=== PATIENT | female | born 1960 | race Caucasian/White ===

== ENCOUNTER 2016-11-08 12:24 | Emergency (ER) | payer OTHER ==
--- NOTE | 2016-11-08 15:20 | ED ORDER SUMMARY ---
..... Patient: ANALY BECKER OrderSheet [facility] VisitID: [id number] [address] [place] [address] 56y, F Registration Date/Time: 11/08/2016 ORDER SHEET Weight: 145.1 kg (stated) Allergies: Penicillins GENERAL ORDERS: MEDICATION ORDERS: Meclizine PO 25 mg (once 15 min after zofran) (13:29 11/08/2016 Sheyla Raphael) (Ack 13:33 MWinterer R.N.) (14:11 MWinterer R.N.) IV FLUIDS: Zofran IV 4 mg (NOW) (13:15 11/08/2016 MWinterer R.N. verbal order read back to Sheyla Raphael) (13:15 MWinterer R.N.) Zofran IV 4 mg (NOW) (13:29 11/08/2016 Sheyla Raphael) (13:33 MWinterer R.N.) Reglan IV 10 mg (NOW) (13:59 11/08/2016 Sheyla Raphael) (Ack 14:00 MWinterer R.N.) (14:10 MWinterer R.N.) ORDER SHEET NOTES: [Electronically signed by Donna Kurtz R.N. (16:02 11/08/2016)] [Electronically signed by Freddy Ceja Dr. (05:45 11/10/2016)] [Electronically locked/signed by Donna Kurtz R.N. (16:02 11/08/2016)]
--- NOTE | 2016-11-08 15:20 | ED CLINICAL REPORT ---
Clinical Report - Physicians/Mid Levels [facility] [address] [place] [address] 11/08/2016 12:27 Patient: ANALY BECKER Time Seen: 1241. Arrived- By private vehicle. Historian- patient. HISTORY OF PRESENT ILLNESS Chief Complaint: VERTIGO. This started today and is still present. It was abrupt in onset and has been constant but is not gone now. Described as a sense of rotation. Severity described as moderate at its maximum. Modifying factors- worsened by turning head. (better with meclizine). The patient has had nausea and vomiting. She has had moderate right-sided tinnitus. The tinnitus on the right has been constant. Similar symptoms previously: Once. Recent medical care: Not recently seen/assessed. REVIEW OF SYSTEMS No chest pain, fever or difficulty breathing. All systems otherwise negative, except as recorded above. PAST HISTORY See nurses notes. Medications: None. Allergies: Penicillins. SOCIAL HISTORY Never smoker. No alcohol use or drug use. No recent travel. Is a local resident. ADDITIONAL NOTES The nursing notes have been reviewed. PHYSICAL EXAM Vital Signs: 11/08/2016 12:57 BP: 146/99. 11/08/2016 12:49 HR: 72. RR: 22. O2 saturation: 96%. Temp: 97.8 F. Pain level now: 0/10. Oxygen saturation normal. Appearance: Alert. Patient in mild distress. Eyes: Pupils equal, round and reactive to light. No nystagmus. Extraocular movements normal. ENT: Normal ENT inspection. TM's normal. Moist mucous membranes. Pharynx normal. Neck: Normal inspection. Neck supple. No meningeal signs. CVS: Normal heart rate and rhythm. Heart sounds normal. Pulses normal. Respiratory: No respiratory distress. Breath sounds normal. Abdomen: Soft and nontender. No organomegaly. Skin: Skin warm and dry. Normal skin color. No rash. Normal skin turgor. Extremities: Extremities exhibit normal ROM. No lower extremity edema. Neuro: Alert. Oriented X 3. Mood/affect normal. Speech normal. No cerebellar findings. No motor deficit. No sensory deficit. (negative HI NTS examination. positive [place] on the right greater than the left.). LABS, X-RAYS, AND EKG EKG: No acute process. No acute ischemia. Normal EKG. Normal sinus rhythm. Rate: 71. Normal P waves. Normal RENA. Normal QRS complex. Normal axis. Normal ST and T waves, QT and QTc. The study has been interpreted contemporaneously. The study has been independently viewed by me. The EKG appears to be a good tracing. PROGRESS AND PROCEDURES Course of Care: the patient is a 56-year-old female presenting for evaluation of nausea as well as dizziness. Patient is describing vertiginous type of symptoms. Patient had similar episode approximately 1 year ago. Patient states that she is better with meclizine. Patient is currently having nausea and vomiting in the emergency Department will also provide patient with nausea medication Patient is agreeable to the treatment and plan. All questions have been answered. The patient was reevaluated once the meclizine has been given. Patient with improved nausea and symptoms of vertigo. Because of the patient's symptoms, do not feel patient needs to be admitted to the hospital or require further emergency department workup/evaluation. With a negative HI NTS examination, patient is a significantly low risk for having isolated CVA of her vestibular system. Had a discussion with the patient in regards to her workup here in the emergency department including diagnosis, home care, follow-up, and return precautions. All questions have been answered. The patient expressed understanding of these instructions and was agreeable to them. Disposition: Discharged. Condition: good. CLINICAL IMPRESSION Acute vertigo of unknown cause. INSTRUCTIONS Warnings: GENERAL WARNINGS: Return or contact your physician immediately if your condition worsens or changes unexpectedly, if not improving as expected, or if other problems arise. SPECIFICALLY, return if you develop chest pain, fluttering sensation in your chest, lightheadedness, fainting, numbness, weakness or extreme fatigue. Prescription Medications: Zofran (orally disintegrating tablets) 4 mg: take 1 orally every 8 hours as needed for nausea and vomiting. Dispense ten (10). No refill. Substitution is permissible. Meclizine 25 mg: take 1 tablet orally every 8 hours as needed for dizziness or nausea. Dispense thirty (30). No refill. Follow-up: Return to the emergency department as needed. Follow up with your doctor in three days. Reason for referral: recheck today's concerns. Summary of care provided to patient via paper. Screening today revealed the patient's blood pressure to be in the normal range. The patient should follow up with a primary care provider for blood pressure management. Understanding of the discharge instructions verbalized by patient. (Electronically signed by Freddy Ceja Dr. 11/10/2016 5:45)
--- NOTE | 2016-11-08 15:20 | ED NURSING NOTES ---
Clinical Report - Nurses [facility] [address] [place] [address] 11/08/2016 12:27 Patient: ANALY BECKER TRIAGE Acuity: LEVEL 3. Chief Complaint: DIZZINESS and VERTIGO. Alert. No acute distress. SEPSIS SCREEN: Sepsis Screen. Negative (no infection suspected/documented). AKUA COMA SCORE: [place] Coma Scale: 15- eyes open spontaneously (4); best verbal response- oriented x 4 (5); best motor response- obeys commands (6). --12:55 Donna Kurtz R.N. 12:49 11/08/16. HR: 72. RR: 22. O2 saturation: 96% on room air. Temp: 97.8 F (oral). Pain level now: 0/10. --12:55 Donna Kurtz R.N. 12:57 11/08/16. BP: 146/99. --12:58 Donna Kurtz R.N. Weight: 145.1 kg stated. Height/Length: 64 inches Per Patient. BMI: 54.9. --12:51 Donna Kurtz R.N. Medications None. --12:51 Donna Kurtz R.N. Medication/allergy information source: the patient. --12:55 Donna Kurtz R.N. Allergies Penicillins. --12:51 Donna Kurtz R.N. History Arrived by private vehicle. Historian: patient. Accompanied by friend. Primary physician (None). This started just prior to arrival. ( Pt reports she had vertigo 1 year ago and that today she feels "just like I did then."). She has had nausea and mild vomiting. She has had right-sided tinnitus. The tinnitus on the right has been associated with ringing. Treatment HAM BONER: None. PAST MEDICAL HX: The patient is post-menopausal. SOCIAL HX: Never smoker. No alcohol use or drug use. NUTRITIONAL RISK ASSESSMENT: The nutritional risk assessment revealed no deficiencies. FUNCTIONAL ASSESSMENT: Functional assessment: no impairments noted. LEARNING NEEDS ASSESSMENT: The learning needs assessment revealed no barriers. FALL RISK ASSESSMENT: Fall risk assessment completed. Risk factors identified include dizziness. SKIN INTEGRITY ASSESSMENT: Skin integrity risk assessment completed. No skin integrity risk identified. --12:55 Donna Kurtz R.N. PROBLEMS: Benign Positional Vertigo. Hypertension. --12:51 Donna Kurtz R.N. ADDITIONAL SURGERIES: . --12:51 Donna Kurtz R.N. Assessment GENERAL / NEURO / PSYCH: Alert. Oriented X 4. Appears in no acute distress. Patient appears calm and cooperative. RESPIRATORY: Respirations not labored. CVS: Capillary refill less than 2 seconds. GI / : Abdomen soft and nontender. SKIN: Mucous membranes are pink. Skin is warm and dry. --12:55 Donna Kurtz R.N. Interventions ID band on patient. To treatment room. --12:55 Donna Kurtz R.N. PHYSICAL ASSESSMENT To room via wheelchair. Patient gowned. GENERAL / NEURO / PSYCH: Oriented X 4. Appears in no acute distress. Alert. Speech within normal limits. HEENT: No facial asymmetry noted. Pupils equal, round and reactive to light. RESPIRATORY: Respirations not labored. CVS: Capillary refill less than 2 seconds. GI / : Emesis noted. Has vomited twice. Abdomen soft. SKIN: Skin is warm and dry. Skin is moderately diaphoretic and clammy. --12:54 Donna Kurtz R.N. NURSING PROGRESS NOTES 12:54 11/08/16. Patient gowned. Two patient identifiers checked. Checked patient name and birthdate: patient confirmed. Call light placed in reach. Patient placed in chair. Brakes of chair on. Patient ready for evaluation- ED physician and PA notified. --12:54 Donna Kurtz R.N. 13:08 11/08/2016 Site #1 started via IV in the right antecubital space with an 20g angiocath, with aseptic technique and good blood return; one attempt. Blood drawn: rainbow set. Labeled in the presence of the patient and sent to the lab. Saline lock flushed with 10 mL saline. --13:08 Donna Kurtz R.N. EKG time: (2108). EKG was performed by a tech and shown to the ED physician and PA. --13:08 Donna Kurtz R.N. 13:15 11/08/2016 Zofran (Ondansetron HCl) IVP 4 mg given over 1 minute(s) via site #1. Allergies verified and confirmed 5 rights. IV patency established. IV site checked: no pain, redness, or swelling. IV flushed thoroughly pre- and post-medication administration. IVP given by RN. --13:15 Donna Kurtz R.N. 13:33 11/08/2016 Zofran (Ondansetron HCl) IVP 4 mg given over 1 minute(s) via site #1. Allergies verified and confirmed 5 rights. IV patency established. IV site checked: no pain, redness, or swelling. IV flushed thoroughly pre- and post-medication administration. IVP given by RN. --13:33 Donna Kurtz R.N. 13:55 11/08/2016 Reglan (Metoclopramide HCl) IVP 10 mg given over 1 minute(s) via site #1. Allergies verified and confirmed 5 rights. IV patency established. IV site checked: no pain, redness, or swelling. IV flushed thoroughly pre- and post-medication administration. IVP given by RN. --14:10 Donna Kurtz R.N. 14:11 11/08/2016 Meclizine PO 25 mg given. Allergies verified, confirmed 5 rights and sedative warning given to the patient. --14:11 Donna Kurtz R.N. 15:02 11/08/16. Reassessment after medication administered. She reports no complaints, she is calm and resting quietly and she has had no adverse reaction. Overall patient status is improved- she states feels better. GENERAL / NEURO / PSYCH: Patient is calm and cooperative. Affect appears normal. Alert. Oriented X 4. RESPIRATORY: No respiratory distress. SKIN: Skin is warm and dry. --15:02 Donna Kurtz R.N. DISPOSITION / DISCHARGE Departure time: 15:40 Nov 08 2016. Condition at departure: improved and stable. No learning barriers present. Discharge instructions provided and reviewed with the patient. Reviewed medication(s) side effects, precautions and dosing information. Prescription(s) given to the patient (zofran and meclizine). Patient verbalized understanding. Written instructions provided in [place]. The patient was discharged by the physician. She was discharged home and accompanied by slasher hand. She left the Emergency Department ambulatory and via private vehicle. Water Purifier Operator driving. --16:01 Donna Kurtz R.N. 15:58 11/08/16. BP: 193/86 (regular adult cuff) taken on the left arm, while sitting. ED physician notified. HR: 81. RR: 20. O2 saturation: 98% on room air. Temp: 97.7 F (oral). Pain level now: 0/10. --16:01 Donna Kurtz R.N. 15:36 11/08/2016 Site #1 removed upon discharge. Catheter intact. Manual pressure and bandage applied. --16:01 Donna Kurtz R.N. Locked/Released at 11/08/2016 16:02 by Donna Kurtz R.N.
--- NOTE | 2016-11-08 15:20 | ED NURSING NOTES ---
Clinical Report - Nurses [facility] [address] [place] [address] 11/08/2016 12:27 Patient: ANALY BECKER TRIAGE Acuity: LEVEL 3. Chief Complaint: DIZZINESS and VERTIGO. Alert. No acute distress. SEPSIS SCREEN: Sepsis Screen. Negative (no infection suspected/documented). AKUA COMA SCORE: [place] Coma Scale: 15- eyes open spontaneously (4); best verbal response- oriented x 4 (5); best motor response- obeys commands (6). --12:55 Donna Kurtz R.N. 12:49 11/08/16. HR: 72. RR: 22. O2 saturation: 96% on room air. Temp: 97.8 F (oral). Pain level now: 0/10. --12:55 Donna Kurtz R.N. 12:57 11/08/16. BP: 146/99. --12:58 Donna Kurtz R.N. Weight: 145.1 kg stated. Height/Length: 64 inches Per Patient. BMI: 54.9. --12:51 Donna Kurtz R.N. Medications None. --12:51 Donna Kurtz R.N. Medication/allergy information source: the patient. --12:55 Donna Kurtz R.N. Allergies Penicillins. --12:51 Donna Kurtz R.N. History Arrived by private vehicle. Historian: patient. Accompanied by friend. Primary physician (None). This started just prior to arrival. ( Pt reports she had vertigo 1 year ago and that today she feels "just like I did then."). She has had nausea and mild vomiting. She has had right-sided tinnitus. The tinnitus on the right has been associated with ringing. Treatment GLOBAL PRODUCT MANAGER: None. PAST MEDICAL HX: The patient is post-menopausal. SOCIAL HX: Never smoker. No alcohol use or drug use. NUTRITIONAL RISK ASSESSMENT: The nutritional risk assessment revealed no deficiencies. FUNCTIONAL ASSESSMENT: Functional assessment: no impairments noted. LEARNING NEEDS ASSESSMENT: The learning needs assessment revealed no barriers. FALL RISK ASSESSMENT: Fall risk assessment completed. Risk factors identified include dizziness. SKIN INTEGRITY ASSESSMENT: Skin integrity risk assessment completed. No skin integrity risk identified. --12:55 Donna Kurtz R.N. PROBLEMS: Benign Positional Vertigo. Hypertension. --12:51 Donna Kurtz R.N. ADDITIONAL SURGERIES: . --12:51 Donna Kurtz R.N. Assessment GENERAL / NEURO / PSYCH: Alert. Oriented X 4. Appears in no acute distress. Patient appears calm and cooperative. RESPIRATORY: Respirations not labored. CVS: Capillary refill less than 2 seconds. GI / : Abdomen soft and nontender. SKIN: Mucous membranes are pink. Skin is warm and dry. --12:55 Donna Kurtz R.N. Interventions ID band on patient. To treatment room. --12:55 Donna Kurtz R.N. PHYSICAL ASSESSMENT To room via wheelchair. Patient gowned. GENERAL / NEURO / PSYCH: Oriented X 4. Appears in no acute distress. Alert. Speech within normal limits. HEENT: No facial asymmetry noted. Pupils equal, round and reactive to light. RESPIRATORY: Respirations not labored. CVS: Capillary refill less than 2 seconds. GI / : Emesis noted. Has vomited twice. Abdomen soft. SKIN: Skin is warm and dry. Skin is moderately diaphoretic and clammy. --12:54 Donna Kurtz R.N. NURSING PROGRESS NOTES 12:54 11/08/16. Patient gowned. Two patient identifiers checked. Checked patient name and birthdate: patient confirmed. Call light placed in reach. Patient placed in chair. Brakes of chair on. Patient ready for evaluation- ED physician and PA notified. --12:54 Donna Kurtz R.N. 13:08 11/08/2016 Site #1 started via IV in the right antecubital space with an 20g angiocath, with aseptic technique and good blood return; one attempt. Blood drawn: rainbow set. Labeled in the presence of the patient and sent to the lab. Saline lock flushed with 10 mL saline. --13:08 Donna Kurtz R.N. EKG time: (5128). EKG was performed by a tech and shown to the ED physician and PA. --13:08 Donna Kurtz R.N. 13:15 11/08/2016 Zofran (Ondansetron HCl) IVP 4 mg given over 1 minute(s) via site #1. Allergies verified and confirmed 5 rights. IV patency established. IV site checked: no pain, redness, or swelling. IV flushed thoroughly pre- and post-medication administration. IVP given by RN. --13:15 Donna Kurtz R.N. 13:33 11/08/2016 Zofran (Ondansetron HCl) IVP 4 mg given over 1 minute(s) via site #1. Allergies verified and confirmed 5 rights. IV patency established. IV site checked: no pain, redness, or swelling. IV flushed thoroughly pre- and post-medication administration. IVP given by RN. --13:33 Donna Kurtz R.N. 13:55 11/08/2016 Reglan (Metoclopramide HCl) IVP 10 mg given over 1 minute(s) via site #1. Allergies verified and confirmed 5 rights. IV patency established. IV site checked: no pain, redness, or swelling. IV flushed thoroughly pre- and post-medication administration. IVP given by RN. --14:10 Donna Kurtz R.N. 14:11 11/08/2016 Meclizine PO 25 mg given. Allergies verified, confirmed 5 rights and sedative warning given to the patient. --14:11 Donna Kurtz R.N. 15:02 11/08/16. Reassessment after medication administered. She reports no complaints, she is calm and resting quietly and she has had no adverse reaction. Overall patient status is improved- she states feels better. GENERAL / NEURO / PSYCH: Patient is calm and cooperative. Affect appears normal. Alert. Oriented X 4. RESPIRATORY: No respiratory distress. SKIN: Skin is warm and dry. --15:02 Donna Kurtz R.N. DISPOSITION / DISCHARGE Departure time: 15:40 Nov 08 2016. Condition at departure: improved and stable. No learning barriers present. Discharge instructions provided and reviewed with the patient. Reviewed medication(s) side effects, precautions and dosing information. Prescription(s) given to the patient (zofran and meclizine). Patient verbalized understanding. Written instructions provided in [place]. The patient was discharged by the physician. She was discharged home and accompanied by curing room worker. She left the Emergency Department ambulatory and via private vehicle. Social Group Worker driving. --16:01 Donna Kurtz R.N. 15:58 11/08/16. BP: 193/86 (regular adult cuff) taken on the left arm, while sitting. ED physician notified. HR: 81. RR: 20. O2 saturation: 98% on room air. Temp: 97.7 F (oral). Pain level now: 0/10. --16:01 Donna Kurtz R.N. 15:36 11/08/2016 Site #1 removed upon discharge. Catheter intact. Manual pressure and bandage applied. --16:01 Donna Kurtz R.N. Locked/Released at 11/08/2016 16:02 by Donna Kurtz R.N.
--- NOTE | 2016-11-08 15:20 | ED ORDER SUMMARY ---
..... Patient: ANALY BECKER OrderSheet [facility] VisitID: [id number] [address] [place] [address] 56y, F Registration Date/Time: 11/08/2016 ORDER SHEET Weight: 145.1 kg (stated) Allergies: Penicillins GENERAL ORDERS: MEDICATION ORDERS: Meclizine PO 25 mg (once 15 min after zofran) (13:29 11/08/2016 Sheyla Raphael) (Ack 13:33 MWinterer R.N.) (14:11 MWinterer R.N.) IV FLUIDS: Zofran IV 4 mg (NOW) (13:15 11/08/2016 MWinterer R.N. verbal order read back to Sheyla Raphael) (13:15 MWinterer R.N.) Zofran IV 4 mg (NOW) (13:29 11/08/2016 Sheyla Raphael) (13:33 MWinterer R.N.) Reglan IV 10 mg (NOW) (13:59 11/08/2016 Sheyla Raphael) (Ack 14:00 MWinterer R.N.) (14:10 MWinterer R.N.) ORDER SHEET NOTES: [Electronically signed by Donna Kurtz R.N. (16:02 11/08/2016)] [Electronically signed by Freddy Ceja Dr. (05:45 11/10/2016)] [Electronically locked/signed by Donna Kurtz R.N. (16:02 11/08/2016)]
--- NOTE | 2016-11-10 05:45 | ED MAR SUMMARY ---
..... Medication Administration Record [facility] [address] [place] [address] Patient: ANALY BECKER Visit ID: [id number] 56y, F Weight: 145.1 kg Height/Length: 64 in BMI: 54.9 ALLERGIES: Penicillins Given 13:15 11/08/2016 Donna Kurtz R.N. Medication Administered: ZOFRAN [IVP] (ONDANSETRON HCL), Dose: 4 mg IVP over 1 minute(s), Site: #1 right AC. Medication Ordered: Zofran IV 4 mg (NOW). Given 13:33 11/08/2016 Donna Kurtz R.N. Medication Administered: ZOFRAN [IVP] (ONDANSETRON HCL), Dose: 4 mg IVP over 1 minute(s), Site: #1 right AC. Medication Ordered: Zofran IV 4 mg (NOW). Given 13:55 11/08/2016 Donna Kurtz R.N. Medication Administered: REGLAN [IVP] (METOCLOPRAMIDE HCL), Dose: 10 mg IVP over 1 minute(s), Site: #1 right AC. Medication Ordered: Reglan IV 10 mg (NOW). Given 14:11 11/08/2016 Donna Kurtz R.N. Medication Administered: MECLIZINE [PO], Dose: 25 mg PO. Medication Ordered: Meclizine PO 25 mg (once 15 min after zofran).
--- NOTE | 2016-11-10 05:45 | ED DISCHARGE INSTRUCTIONS ---
Patient: ANALY BECKER General Instructions [facility] VisitID: [id number] [place] [address] 56y, F Registration Date/Time: 11/08/2016 Acute vertigo of unknown cause. INSTRUCTIONS Warnings: GENERAL WARNINGS: Return or contact your physician immediately if your condition worsens or changes unexpectedly, if not improving as expected, or if other problems arise. SPECIFICALLY, return if you develop chest pain, fluttering sensation in your chest, lightheadedness, fainting, numbness, weakness or extreme fatigue. Prescription Medications: Zofran (orally disintegrating tablets) 4 mg: take 1 orally every 8 hours as needed for nausea and vomiting. Dispense ten (10). No refill. Substitution is permissible. Meclizine 25 mg: take 1 tablet orally every 8 hours as needed for dizziness or nausea. Dispense thirty (30). No refill. Follow-up: Return to the emergency department as needed. Follow up with your doctor in three days. Reason for referral: recheck today's concerns. Summary of care provided to patient via paper. Screening today revealed the patient's blood pressure to be in the normal range. The patient should follow up with a primary care provider for blood pressure management. Understanding of the discharge instructions verbalized by patient. ADDITIONAL INFORMATION Vertigo [Unknown Cause] The "inner ear" is located behind the middle ear. It is part of the balance center of your body. Disease of the inner ear causes vertigo -- a false feeling of motion. It feels as if you or the room is spinning. A vertigo attack may cause sudden nausea, vomiting and heavy sweating. Severe vertigo causes a loss of balance and can cause you to fall. During vertigo, small head movements and changes in body position will often make the symptoms worse. The causes of vertigo include: Inflammation of the inner ear Disease of the nerves to the inner ear Movement of calcium particles in the inner ear Poor blood flow to the balance centers of the brain An episode of vertigo may last seconds, minutes or hours. Once you are over the first episode, it may never return. However, sometimes symptoms may recur off and on over several weeks or longer, depending on the cause. There may be ringing in the ears or hearing loss, which may be temporary or permanent. Home Care: If symptoms are severe, rest quietly in bed. Change positions very slowly. There is usually one position that will feel best, such as lying on one side or lying on your back with your head slightly raised on pillows. Do not drive or work with dangerous machinery for one week after symptoms go away, in case the symptoms suddenly return. Take medicine as prescribed to relieve your symptoms. Unless another medicine was prescribed for nausea, vomiting and vertigo, you may use [id number] motion sickness pills, such as meclizine (Bonine, Bonamine, Antivert) or dimenhydrinate (Dramamine). Follow Up with your doctor or as directed by our staff. Tell the doctor if your ears keep ringing, or if your hearing does not return to normal. Get Prompt Medical Attention if any of the following occur: Vertigo gets worse and is not controlled by medicine prescribed Repeated vomiting not relieved by medicine prescribed Increased weakness or fainting Severe headache or unusually drowsy or confused Weakness of an arm or leg or one side of the face Difficulty with speech or vision Labyrinthitis The "inner ear" is located behind the middle ear. It is part of the balance center of your body. When the inner ear becomes irritated or inflamed it causes an illness known as Labyrinthitis. It is most often due to a viral condition, but often a source is not found. Labyrinthitis causes sudden "vertigo" (a feeling that you or the room is spinning). There is a loss of balance when trying to walk, intense nausea and vomiting. Head movement from side to side, or changes in body position (from lying to sitting or standing) may worsen symptoms. An episode of vertigo may last seconds, minutes or hours. Once you are over the first episode of vertigo, it may never return. Sometimes symptoms recur off and on over several weeks or longer depending on the cause. Home Care: If symptoms are severe, rest quietly in bed. Change positions slowly. There is usually one position that will feel best, such as lying on one side or the other or lying on your back with your head slightly raised on pillows. Reduce your salt intake until you are symptom free for one month. Fluid retention caused by salt can make this condition worse. Do not drive or work with dangerous machinery for one week after symptoms disappear. Be cautious about using stairs. (In case of a sudden unexpected recurrence.) Take medicine as prescribed to relieve your symptoms. Unless another medicine was prescribed for nausea, vomiting and vertigo, you may use yjnz-wrs-lahbcvj motion sickness pills, such as meclizine (Bonine, Bonamine, Antivert) or dimenhydrinate (Dramamine). All these medicines may cause drowsiness. Follow Up with your doctor or as advised by our staff. Get Prompt Medical Attention if any of the following occur: Worsening of vertigo, not controlled by medicine prescribed Repeated vomiting not relieved by medicine prescribed Increased weakness or fainting Headache or unusual drowsiness Difficulty with vision, speech or movement of the face, arms or legs Ondansetron Oral disintegrating tablet What is this medicine? ONDANSETRON (on CHRISTINE se erickson) is used to treat nausea and vomiting caused by chemotherapy. It is also used to prevent or treat nausea and vomiting after surgery. How should I use this medicine? These tablets are made to dissolve in the mouth. Do not try to push the tablet through the foil backing. With dry hands, peel away the foil backing and gently remove the tablet. Place the tablet in the mouth and allow it to dissolve, then swallow. While you may take these tablets with water, it is not necessary to do so. Talk to your disintegrator regarding the use of this medicine in children. Special care may be needed. What side effects may I notice from receiving this medicine? Side effects that you should report to your doctor or health interior plant caretaker as soon as possible: allergic reactions like skin rash, itching or hives, swelling of the face, lips, or tongue breathing problems dizziness fast or irregular heartbeat feeling faint or lightheaded, falls fever and chills swelling of the hands and feet tightness in the chest Side effects that usually do not require medical attention (report to your doctor or health interior plant caretaker if they continue or are bothersome): constipation or diarrhea headache What may interact with this medicine? Do not take this medicine with any of the following medications: -apomorphine -cisapride -dofetilide -dronedarone -pimozide -thioridazine -ziprasidone This medicine may also interact with the following medications: -carbamazepine -phenytoin -rifampicin -tramadol -other medicines that prolong the QT interval (cause an abnormal heart rhythm) What if I miss a dose? If you miss a dose, take it as soon as you can. If it is almost time for your next dose, take only that dose. Do not take double or extra doses. Where should I keep my medicine? Keep out of the reach of children. Store between 2 and 30 degrees C (36 and 86 degrees F). Throw away any unused medicine after the expiration date. What should I tell my health care provider before I take this medicine? They need to know if you have any of these conditions: heart disease history of irregular heartbeat liver disease low levels of magnesium or potassium in the blood an unusual or allergic reaction to ondansetron, granisetron, other medicines, foods, dyes, or preservatives or trying to get breast-feeding What should I watch for while using this medicine? Check with your doctor or health interior plant caretaker as soon as you can if you have any sign of an allergic reaction. Meclizine Hydrochloride Oral tablet What is this medicine? MECLIZINE (MARTHA vizcarra) is an antihistamine. It is used to prevent nausea, vomiting, or dizziness caused by motion sickness. It is also used to prevent and treat vertigo (extreme dizziness or a feeling that you or your surroundings are tilting or spinning around). How should I use this medicine? Take this medicine by mouth with a glass of water. Follow the directions on the prescription label. If you are using this medicine to prevent motion sickness, take the dose at least 1 hour before travel. If it upsets your stomach, take it with food or milk. Take your doses at regular intervals. Do not take your medicine more often than directed. Talk to your disintegrator regarding the use of this medicine in children. Special care may be needed. What side effects may I notice from receiving this medicine? Side effects that you should report to your doctor or health interior plant caretaker as soon as possible: fainting spells fast or irregular heartbeat Side effects that usually do not require medical attention (report to your doctor or health interior plant caretaker if they continue or are bothersome): constipation difficulty passing urine difficulty sleeping headache stomach upset What may interact with this medicine? barbiturate medicines for inducing sleep or treating seizures digoxin medicines for anxiety or sleeping problems, like alprazolam, diazepam or temazepam medicines for hay fever and other allergies medicines for mental depression medicines for movement abnormalities as in Parkinson's disease, or for stomach problems medicines for pain medicines that relax muscles What if I miss a dose? If you miss a dose, take it as soon as you can. If it is almost time for your next dose, take only that dose. Do not take double or extra doses. Where should I keep my medicine? Keep out of the reach of children. Store at room temperature between 15 and 30 degrees C (59 and 86 degrees F). Keep container tightly closed. Throw away any unused medicine after the expiration date. What should I tell my health care provider before I take this medicine? They need to know if you have any of these conditions: asthma glaucoma prostate trouble stomach problems urinary problems an unusual or allergic reaction to meclizine, other medicines, foods, dyes, or preservatives or trying to get breast-feeding What should I watch for while using this medicine? If you are taking this medicine on a regular schedule, visit your doctor or health interior plant caretaker for regular checks on your progress. You may get dizzy, drowsy or have blurred vision. Do not drive, use machinery, or do anything that needs mental alertness until you know how this medicine affects you. Do not stand or sit up quickly, especially if you are an older patient. This reduces the risk of dizzy or fainting spells. Alcohol can increase possible dizziness. Avoid alcoholic drinks. Your mouth may get dry. Chewing sugarless gum or sucking hard candy, and drinking plenty of water may help. Contact your doctor if the problem does not go away or is severe. This medicine may cause dry eyes and blurred vision. If you wear contact lenses you may feel some discomfort. Lubricating drops may help. See your eye doctor if the problem does not go away or is severe. You have been given the following additional information: Vertigo, Unspecified Labyrinthitis Ondansetron Oral disintegrating tablet Meclizine Hydrochloride Oral tablet (Electronically signed by Freddy Ceja Dr. 11/10/2016 5:45)
--- NOTE | 2016-11-10 05:45 | ED MED RECONCILIATION SUMMARY ---
Patient: ANALY BECKER Medication Reconciliation Report [facility] VisitID: [id number] [address] [place] [address] 56y, F Registration Date/Time: 11/08/2016 Weight: 145.1 kg Height/Length: 64 in. BMI: 54.9 ALLERGIES: Penicillins The patient's Home Medications are listed below: NONE. The source(s) of the original Home Medication information: patient The following Medications were given to the patient in the Emergency Department: Zofran [IVP] IVP 4 mg, administered: 11/08/2016 1:15:00 PM Zofran [IVP] IVP 4 mg, administered: 11/08/2016 1:33:00 PM Reglan [IVP] IVP 10 mg, administered: 11/08/2016 1:55:00 PM Meclizine [PO] PO 25 mg, administered: 11/08/2016 2:11:00 PM The following Medications were prescribed to the patient: Zofran (orally disintegrating tablets) 4 mg: take 1 orally every 8 hours as needed for nausea and vomiting. Dispense ten (10). No refill. Substitution is permissible. -- Freddy Ceja Dr. Meclizine 25 mg: take 1 tablet orally every 8 hours as needed for dizziness or nausea. Dispense thirty (30). No refill. -- Freddy Ceja Dr.
--- NOTE | 2016-11-10 05:45 | ED MAR SUMMARY ---
..... Medication Administration Record [facility] [address] [place] [address] Patient: ANALY BECKER Visit ID: [id number] 56y, F Weight: 145.1 kg Height/Length: 64 in BMI: 54.9 ALLERGIES: Penicillins Given 13:15 11/08/2016 Donna Kurtz R.N. Medication Administered: ZOFRAN [IVP] (ONDANSETRON HCL), Dose: 4 mg IVP over 1 minute(s), Site: #1 right AC. Medication Ordered: Zofran IV 4 mg (NOW). Given 13:33 11/08/2016 Donna Kurtz R.N. Medication Administered: ZOFRAN [IVP] (ONDANSETRON HCL), Dose: 4 mg IVP over 1 minute(s), Site: #1 right AC. Medication Ordered: Zofran IV 4 mg (NOW). Given 13:55 11/08/2016 Donna Kurtz R.N. Medication Administered: REGLAN [IVP] (METOCLOPRAMIDE HCL), Dose: 10 mg IVP over 1 minute(s), Site: #1 right AC. Medication Ordered: Reglan IV 10 mg (NOW). Given 14:11 11/08/2016 Donna Kurtz R.N. Medication Administered: MECLIZINE [PO], Dose: 25 mg PO. Medication Ordered: Meclizine PO 25 mg (once 15 min after zofran).
--- NOTE | 2016-11-10 05:45 | ED MED RECONCILIATION SUMMARY ---
Patient: ANALY BECKER Medication Reconciliation Report [facility] VisitID: [id number] [address] [address] 56y, F Registration Date/Time: 11/08/2016 Weight: 145.1 kg Height/Length: 64 in. BMI: 54.9 ALLERGIES: Penicillins The patient's Home Medications are listed below: NONE. The source(s) of the original Home Medication information: patient The following Medications were given to the patient in the Emergency Department: Zofran [IVP] IVP 4 mg, administered: 11/08/2016 1:15:00 PM Zofran [IVP] IVP 4 mg, administered: 11/08/2016 1:33:00 PM Reglan [IVP] IVP 10 mg, administered: 11/08/2016 1:55:00 PM Meclizine [PO] PO 25 mg, administered: 11/08/2016 2:11:00 PM The following Medications were prescribed to the patient: Zofran (orally disintegrating tablets) 4 mg: take 1 orally every 8 hours as needed for nausea and vomiting. Dispense ten (10). No refill. Substitution is permissible. -- Freddy Ceja Dr. Meclizine 25 mg: take 1 tablet orally every 8 hours as needed for dizziness or nausea. Dispense thirty (30). No refill. -- Freddy Ceja Dr.
--- NOTE | 2016-11-10 05:45 | ED DISCHARGE INSTRUCTIONS ---
Patient: ANALY BECKER General Instructions [facility] VisitID: [id number] [place] [address] 56y, F Registration Date/Time: 11/08/2016 Acute vertigo of unknown cause. INSTRUCTIONS Warnings: GENERAL WARNINGS: Return or contact your physician immediately if your condition worsens or changes unexpectedly, if not improving as expected, or if other problems arise. SPECIFICALLY, return if you develop chest pain, fluttering sensation in your chest, lightheadedness, fainting, numbness, weakness or extreme fatigue. Prescription Medications: Zofran (orally disintegrating tablets) 4 mg: take 1 orally every 8 hours as needed for nausea and vomiting. Dispense ten (10). No refill. Substitution is permissible. Meclizine 25 mg: take 1 tablet orally every 8 hours as needed for dizziness or nausea. Dispense thirty (30). No refill. Follow-up: Return to the emergency department as needed. Follow up with your doctor in three days. Reason for referral: recheck today's concerns. Summary of care provided to patient via paper. Screening today revealed the patient's blood pressure to be in the normal range. The patient should follow up with a primary care provider for blood pressure management. Understanding of the discharge instructions verbalized by patient. ADDITIONAL INFORMATION Vertigo [Unknown Cause] The "inner ear" is located behind the middle ear. It is part of the balance center of your body. Disease of the inner ear causes vertigo -- a false feeling of motion. It feels as if you or the room is spinning. A vertigo attack may cause sudden nausea, vomiting and heavy sweating. Severe vertigo causes a loss of balance and can cause you to fall. During vertigo, small head movements and changes in body position will often make the symptoms worse. The causes of vertigo include: Inflammation of the inner ear Disease of the nerves to the inner ear Movement of calcium particles in the inner ear Poor blood flow to the balance centers of the brain An episode of vertigo may last seconds, minutes or hours. Once you are over the first episode, it may never return. However, sometimes symptoms may recur off and on over several weeks or longer, depending on the cause. There may be ringing in the ears or hearing loss, which may be temporary or permanent. Home Care: If symptoms are severe, rest quietly in bed. Change positions very slowly. There is usually one position that will feel best, such as lying on one side or lying on your back with your head slightly raised on pillows. Do not drive or work with dangerous machinery for one week after symptoms go away, in case the symptoms suddenly return. Take medicine as prescribed to relieve your symptoms. Unless another medicine was prescribed for nausea, vomiting and vertigo, you may use [id number] motion sickness pills, such as meclizine (Bonine, Bonamine, Antivert) or dimenhydrinate (Dramamine). Follow Up with your doctor or as directed by our staff. Tell the doctor if your ears keep ringing, or if your hearing does not return to normal. Get Prompt Medical Attention if any of the following occur: Vertigo gets worse and is not controlled by medicine prescribed Repeated vomiting not relieved by medicine prescribed Increased weakness or fainting Severe headache or unusually drowsy or confused Weakness of an arm or leg or one side of the face Difficulty with speech or vision Labyrinthitis The "inner ear" is located behind the middle ear. It is part of the balance center of your body. When the inner ear becomes irritated or inflamed it causes an illness known as Labyrinthitis. It is most often due to a viral condition, but often a source is not found. Labyrinthitis causes sudden "vertigo" (a feeling that you or the room is spinning). There is a loss of balance when trying to walk, intense nausea and vomiting. Head movement from side to side, or changes in body position (from lying to sitting or standing) may worsen symptoms. An episode of vertigo may last seconds, minutes or hours. Once you are over the first episode of vertigo, it may never return. Sometimes symptoms recur off and on over several weeks or longer depending on the cause. Home Care: If symptoms are severe, rest quietly in bed. Change positions slowly. There is usually one position that will feel best, such as lying on one side or the other or lying on your back with your head slightly raised on pillows. Reduce your salt intake until you are symptom free for one month. Fluid retention caused by salt can make this condition worse. Do not drive or work with dangerous machinery for one week after symptoms disappear. Be cautious about using stairs. (In case of a sudden unexpected recurrence.) Take medicine as prescribed to relieve your symptoms. Unless another medicine was prescribed for nausea, vomiting and vertigo, you may use [id number] motion sickness pills, such as meclizine (Bonine, Bonamine, Antivert) or dimenhydrinate (Dramamine). All these medicines may cause drowsiness. Follow Up with your doctor or as advised by our staff. Get Prompt Medical Attention if any of the following occur: Worsening of vertigo, not controlled by medicine prescribed Repeated vomiting not relieved by medicine prescribed Increased weakness or fainting Headache or unusual drowsiness Difficulty with vision, speech or movement of the face, arms or legs Ondansetron Oral disintegrating tablet What is this medicine? ONDANSETRON (on CHRISTINE se erickson) is used to treat nausea and vomiting caused by chemotherapy. It is also used to prevent or treat nausea and vomiting after surgery. How should I use this medicine? These tablets are made to dissolve in the mouth. Do not try to push the tablet through the foil backing. With dry hands, peel away the foil backing and gently remove the tablet. Place the tablet in the mouth and allow it to dissolve, then swallow. While you may take these tablets with water, it is not necessary to do so. Talk to your business objects consultant regarding the use of this medicine in children. Special care may be needed. What side effects may I notice from receiving this medicine? Side effects that you should report to your doctor or health child care attendant school as soon as possible: allergic reactions like skin rash, itching or hives, swelling of the face, lips, or tongue breathing problems dizziness fast or irregular heartbeat feeling faint or lightheaded, falls fever and chills swelling of the hands and feet tightness in the chest Side effects that usually do not require medical attention (report to your doctor or health child care attendant school if they continue or are bothersome): constipation or diarrhea headache What may interact with this medicine? Do not take this medicine with any of the following medications: -apomorphine -cisapride -dofetilide -dronedarone -pimozide -thioridazine -ziprasidone This medicine may also interact with the following medications: -carbamazepine -phenytoin -rifampicin -tramadol -other medicines that prolong the QT interval (cause an abnormal heart rhythm) What if I miss a dose? If you miss a dose, take it as soon as you can. If it is almost time for your next dose, take only that dose. Do not take double or extra doses. Where should I keep my medicine? Keep out of the reach of children. Store between 2 and 30 degrees C (36 and 86 degrees F). Throw away any unused medicine after the expiration date. What should I tell my health care provider before I take this medicine? They need to know if you have any of these conditions: heart disease history of irregular heartbeat liver disease low levels of magnesium or potassium in the blood an unusual or allergic reaction to ondansetron, granisetron, other medicines, foods, dyes, or preservatives or trying to get breast-feeding What should I watch for while using this medicine? Check with your doctor or health child care attendant school as soon as you can if you have any sign of an allergic reaction. Meclizine Hydrochloride Oral tablet What is this medicine? MECLIZINE (MARTHA vizcarra) is an antihistamine. It is used to prevent nausea, vomiting, or dizziness caused by motion sickness. It is also used to prevent and treat vertigo (extreme dizziness or a feeling that you or your surroundings are tilting or spinning around). How should I use this medicine? Take this medicine by mouth with a glass of water. Follow the directions on the prescription label. If you are using this medicine to prevent motion sickness, take the dose at least 1 hour before travel. If it upsets your stomach, take it with food or milk. Take your doses at regular intervals. Do not take your medicine more often than directed. Talk to your business objects consultant regarding the use of this medicine in children. Special care may be needed. What side effects may I notice from receiving this medicine? Side effects that you should report to your doctor or health child care attendant school as soon as possible: fainting spells fast or irregular heartbeat Side effects that usually do not require medical attention (report to your doctor or health child care attendant school if they continue or are bothersome): constipation difficulty passing urine difficulty sleeping headache stomach upset What may interact with this medicine? barbiturate medicines for inducing sleep or treating seizures digoxin medicines for anxiety or sleeping problems, like alprazolam, diazepam or temazepam medicines for hay fever and other allergies medicines for mental depression medicines for movement abnormalities as in Parkinson's disease, or for stomach problems medicines for pain medicines that relax muscles What if I miss a dose? If you miss a dose, take it as soon as you can. If it is almost time for your next dose, take only that dose. Do not take double or extra doses. Where should I keep my medicine? Keep out of the reach of children. Store at room temperature between 15 and 30 degrees C (59 and 86 degrees F). Keep container tightly closed. Throw away any unused medicine after the expiration date. What should I tell my health care provider before I take this medicine? They need to know if you have any of these conditions: asthma glaucoma prostate trouble stomach problems urinary problems an unusual or allergic reaction to meclizine, other medicines, foods, dyes, or preservatives or trying to get breast-feeding What should I watch for while using this medicine? If you are taking this medicine on a regular schedule, visit your doctor or health child care attendant school for regular checks on your progress. You may get dizzy, drowsy or have blurred vision. Do not drive, use machinery, or do anything that needs mental alertness until you know how this medicine affects you. Do not stand or sit up quickly, especially if you are an older patient. This reduces the risk of dizzy or fainting spells. Alcohol can increase possible dizziness. Avoid alcoholic drinks. Your mouth may get dry. Chewing sugarless gum or sucking hard candy, and drinking plenty of water may help. Contact your doctor if the problem does not go away or is severe. This medicine may cause dry eyes and blurred vision. If you wear contact lenses you may feel some discomfort. Lubricating drops may help. See your eye doctor if the problem does not go away or is severe. You have been given the following additional information: Vertigo, Unspecified Labyrinthitis Ondansetron Oral disintegrating tablet Meclizine Hydrochloride Oral tablet (Electronically signed by Freddy Ceja Dr. 11/10/2016 5:45)
== END 2016-11-08 15:40 | disposition home or self-care (01) ==
LOC: ED SRH 12:24
DX: R42 Dizziness and giddiness (principal); Z88.0 Allergy status to penicillin